=== PATIENT | female | born 1960 | race Hispanic/Latino ===

== ENCOUNTER → 2018-01-28 | Day surgery (SDC) | payer OTHER ==
[~2018-01-28] MED LIST: CARAFATE SU1 G/10 ML PO; CLONAZEPAM0.5 MG PO; DUEXIS 800-26.1 EACH PO; ESTROGEN PO; FENTANYL CITRATE/PF 100MCG/2 ML INJ ONE; L-METHYLFOLATE15 MG PO; LIDOCAINE HCL 2% LOCAL INJ 5 ML SDV VIAL INJ ONE; MELOXICAM7.5 MG PO; MIDAZOLAM HCL 2 MG/2 ML VIAL ONE; PROPOFOL IV EMULSION 10 MG/ML 20 ML VIAL ONE; PROTONIX40 M2 PO; VESICARE5 MG PO; XARELTO10 MG PO; XARELTO20 MG PO; Z LAMOTRIGINE PO; Z.0.ABILIFY10 MG PO; Z.0.CRESTOR20 MG PO; Z.0.SERTRALINE HCL10 PO; Z.0.TOVIAZ4 MG PO; [UNRECOGNIZED DRUG - OTHER] PO; [UNRECOGNIZED DRUG - OTHER] PO; [UNRECOGNIZED DRUG - OTHER] PO
--- NOTE | 2018-01-29 03:58 | Operative Report ---
DATE OF PROCEDURE: January 28, 2018 REFERRING PHYSICIAN: Dr. Chemo Ravi PROCEDURE PERFORMED: Esophagogastroduodenoscopy with esophageal dilatation biopsies and a colonoscopy with polypectomy. INDICATIONS FOR ESOPHAGOGASTRODUODENOSCOPY: Dysphagia and nausea. INDICATIONS FOR COLONOSCOPY: Colorectal cancer screening and personal history of colon polyps. MEDICATION: Patient was done under MAC. Please see anesthesiologist's note. PROCEDURE: With patient in the left lateral decubitus position, flexible fiberoptic Olympus gastroscope was introduced into the esophagus under direct visualization without any difficulty. There was a mild stricture noted at the GE junction and that was dilated to size 52-[place] Ni. There was some mild erythema also noted in the distal esophagus. The scope was then advanced with ease into the stomach. Mucosa overlying the antrum and the body revealed some patchy erythema and low-grade to moderate edema and biopsies were obtained and sent to stain for H. pylori. Pylorus appeared to be of normal contour and shape. It was intubated with ease and the scope was advanced all the way to the 2nd portion of the duodenum. The scope was then withdrawn slowly. Mucosa overlying the proximal 2nd portion and the duodenal bulb appeared to be within normal limits. The scope was then withdrawn back into the stomach and retroflexed and the mucosa overlying the fundus and the cardia appeared to be within normal limits. The scope was then straightened out. The stomach was decompressed. The scope subsequently withdrawn. Patient tolerated the procedure well. IMPRESSION 1. Distal esophagitis. 2. Esophageal stricture at gastroesophageal junction dilated to size 52-[place] Ni. 3. Gastritis biopsied. Biopsies sent to stain for Helicobacter pylori. PLAN: Follow up histology. Continue Protonix 40 mg 1 p.o. a.c. b.i.d. PROCEDURE FOR COLONOSCOPY: Patient was then turned around after adequate lubrication of the anal canal. A flexible fiberoptic Olympus colonoscope was inserted into the rectum with ease and advanced all the way to the cecum. It was then withdrawn slowly. Mucosa overlying the cecum, ascending colon, transverse colon appeared to be within normal limits. One polyp was hot biopsied from the descending colon. Two polyps were hot biopsied from the sigmoid and 1 polyp was hot biopsied from the rectum. The scope was then retroflexed into the distal rectum and small internal hemorrhoids were noted, none of which was actively bleeding. The scope was then straightened out. It was subsequently withdrawn. Patient tolerated the procedure well. IMPRESSION 1. Descending colon polyp, hot biopsied. 2. Sigmoid colon polyps, hot biopsied x2. 3. Rectal polyp, hot biopsied x1. 4. Internal hemorrhoids, none actively bleeding. PLAN: Follow up histology. Initiate high-fiber, low-fat diet. Initiate high-fiber supplement. Patient will need a followup colonoscopy in 3 years. Job#: [id number] GISSELLE cc:Dr. Chemo Ravi
== END | disposition home or self-care (01) ==
LOC: OR 12:55
PROVIDERS: ATTEND Internal Medicine Gastroenterology
DX: Z12.11 Encounter for screening for malignant neoplasm of colon (principal); K63.5 Polyp of colon; K62.1 Rectal polyp; K22.2 Esophageal obstruction; K29.70 Gastritis, unspecified, without bleeding; K20.8 Other esophagitis; K21.9 Gastro-esophageal reflux disease without esophagitis; K64.8 Other hemorrhoids; G47.33 Obstructive sleep apnea (adult) (pediatric); E78.5 Hyperlipidemia, unspecified; F32.9 Major depressive disorder, single episode, unspecified; Z68.28 Body mass index [BMI] 28.0-28.9, adult; Z86.711 Personal history of pulmonary embolism; Z80.0 Family history of malignant neoplasm of digestive organs
CPT/HCPCS: 43239; 43450; 45384; 93005; J2001; J2250

== ENCOUNTER 2018-07-02 12:08 | Emergency (ER) | payer OTHER ==
[~2018-07-02] VITALS: Ht 157.5 cm; Wt 65.8 kg
[~2018-07-02 12:08] MED LIST changes: -FENTANYL CITRATE/PF 100MCG/2 ML INJ ONE; -LIDOCAINE HCL 2% LOCAL INJ 5 ML SDV VIAL INJ ONE; -MIDAZOLAM HCL 2 MG/2 ML VIAL ONE; -PROPOFOL IV EMULSION 10 MG/ML 20 ML VIAL ONE
[2018-07-02] MEDS ORDERED: MUPIROCIN22 GM TOP (12:42)
== END 2018-07-02 12:59 | disposition home or self-care (01) ==
LOC: FSED 12:08
DX: L60.0 Ingrowing nail (principal); B35.1 Tinea unguium; K21.9 Gastro-esophageal reflux disease without esophagitis; F41.9 Anxiety disorder, unspecified; F32.9 Major depressive disorder, single episode, unspecified
CPT/HCPCS: 99283

== ENCOUNTER → 2018-10-11 | Day surgery (SDC) | payer OTHER ==
[2018-10-09 12:51] LABS: BASOPHILS # (AUTO) 0.1 (0.0-0.1); BASOPHILS % 0.5 % (0.0-1.0); EOSINOPHILS # (AUTO) 0.1 (0.0-0.4); EOSINOPHILS % 1.4 % (0.0-6.0); HEMATOCRIT 41.4 % (34.2-44.1); HEMOGLOBIN 13.7 g/dL (12.0-16.0); LYMPHOCYTES # (AUTO) 2.2 (1.0-3.2); LYMPHOCYTES % 22.3 % (18.0-39.1); MEAN CORPUSCULAR HEMOGLOBIN 28.8 pg (28-32); MEAN CORPUSCULAR HGB CONC 33.1 g/dL (31-35); MEAN CORPUSCULAR VOLUME 87.2 fL (81-99); MONOCYTES # (AUTO) 0.5 (0.2-0.8); MONOCYTES % 4.7 % (4.4-11.3); NEUTROPHILS # (AUTO) 6.9 (2.1-6.9); NEUTROPHILS % 70.8 % (38.7-80.0); PLATELET COUNT 267 x10e3/uL (140-360); RED BLOOD COUNT 4.75 x10e6/uL (3.6-5.1); RED CELL DISTRIBUTION WIDTH 13.1 % (11.7-14.4)
[2018-10-09 13:23] LABS: ANION GAP 12.8 mmol/L (8-16); BLOOD UREA NITROGEN 15 mg/dL (7-26); BUN/CREATININE RATIO 19 (6-25); CALCIUM 9.8 mg/dL (8.4-10.2); CARBON DIOXIDE 25 mmol/L (22-29); CHLORIDE 108 mmol/L (98-107); CREATININE, SERUM 0.78 mg/dL (0.57-1.11); EST GLOMERULAR FILTRATION RATE > 60 ML/MIN (60-); GLUCOSE 99 mg/dL (74-118); POTASSIUM 3.8 mmol/L (3.5-5.1); SODIUM 142 mmol/L (136-145)
--- NOTE | 2018-10-09 13:39 | Diagnostic Imaging Report ---
EXAMINATION: PA and lateral views of the chest. COMPARISON: None CLINICAL HISTORY: Preoperative study for foot surgery DISCUSSION: Lines/tubes: None. Lungs: The lungs are well inflated and clear. There is no evidence of pneumonia or pulmonary edema. Pleura: There is no pleural effusion or pneumothorax. Heart and mediastinum: The cardiomediastinal silhouette is normal. Bones and soft tissues: No acute bony abnormalities. IMPRESSION: No acute cardiopulmonary abnormalities. Signed by: Dr. Milton Isaacs M.D. on 10/09/2018 1:36 PM
[~2018-10-11] MED LIST changes: +ACETAMINOPHEN 1000 MG/100 ML IV ONE; +BETAMETHASONE DISODIUM PHOS 6 MG/ML VIAL ONE; +BUPIVACAINE HCL 0.5% INJ 30 ML VIAL INJ ONE; +CEFAZOLIN SOD 1 GM/NS 50ML 50 ML IV ONE; +DEXAMETHASONE SOD PHOS INJ 4 MG/ML VIAL ONE; +FENTANYL CITRATE/PF 100MCG/2 ML INJ ONE; +LIDOCAINE HCL 1% LOCAL INJ 20 ML VIAL ONE; +LIDOCAINE HCL 2% LOCAL INJ 5 ML SDV VIAL INJ ONE; +MEPERIDINE HCL INJ 25 MG/ML VIAL ONE; +METOCLOPRAMIDE HCL 10 MG/2ML VIAL ONE; +MIDAZOLAM HCL 2 MG/2 ML VIAL ONE; +MUPIROCIN 2% OINT 22 GM TUBE ONE; +MUPIROCIN22 GM TOP; +ONDANSETRON HCL INJ 2MG/ML 2ML 2 MG/ML VIAL ONE; +PROPOFOL IV EMULSION 10 MG/ML 20 ML VIAL ONE; +SEVOFLURANE INHAL SOLN 250 ML PEN BTL ONE
--- OUTSIDE RECORDS SUMMARY | 2018-10-11 05:38 | XMS REPORT | Summary of Care ---
Author Author JOO TAN M.D. Unknown Address Unknown Phone Unavailable Care Team Providers Care Stoker Installer Name Role Phone JOO TAN M.D. Unavailable Unavailable JOO TAN MD Unavailable Unavailable Unavailable Unavailable Functional Status Name Dates Details Functional status health issues are not documented Status: Name Dates Details Cognitive status health issues are not documented Status: Problems Name Dates Details Overactive bladder (596.51, N32.81) Status: Active Pulmonary embolism (415.19, I26.99) Status: Active Vegetarian diet (V49.89, Z78.9) Status: Active Chronic GERD (530.81, K21.9) Status: Active Well woman exam (no gynecological exam) (V70.0, Z00.00) Status: Active Vaginal pain (625.9, R10.2) Status: Active Hypercholesterolemia (272.0, E78.00) Status: Active Hyperglycemia (790.29, R73.9) Status: Active Pelvic pain in female (625.9, R10.2) Status: Active Breast lump (611.72, N63.0) Status: Active Breast cancer screening (V76.10, Z12.31) Status: Active Fibrocystic breast changes, bilateral (610.1, N60.11) Status: Active Depression, major, recurrent, 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 * Refills: 0 Active Sertraline HCl - 100 MG Oral Tablet TAKE 2 TABLETS BY MOUTH EVERY DAY * Quantity: 180 Refills: 0 JOO TAN M.D. * Start : 14-Oct-2017 Active LamoTRIgine 200 MG Oral Tablet TAKE 1 TABLET BY MOUTH EVERY DAY * Quantity: 90 Refills: 0 JOO TAN M.D. * Start : 05-Sep-2017 Active ARIPiprazole 20 MG Oral Tablet TAKE 1 TABLET BY MOUTH EVERY DAY * Quantity: 90 Refills: 0 JOO TAN M.D. * Start : 19-May-2017 Active Crestor 20 MG Oral Tablet TAKE 1 TABLET DAILY. * Refills: 0 Active VESIcare 5 MG Oral Tablet TAKE 1 TABLET BY MOUTH EVERYDAY * Refills: 0 Active Meloxicam TABS TAKE 1 TABLET DAILY. * Refills: 0 Active 30 Tablet Bottle Allergies and Adverse Reactions Name Dates Details No Known Drug Allergies (Allergy) Status: Active Past Medical History Name Dates Details Chronic GERD (530.81, K21.9) Status: Active Overactive bladder (596.51, N32.81) Status: Active Pulmonary embolism (415.19, I26.99) Status: Active History of depression (V11.8, Z86.59) Status: Resolved History of hyperlipidemia (V12.29, Z86.39) Status: Resolved History of psychosis (V11.8, Z86.59) Status: Resolved Procedures Procedure Dates Details History of Liposuction Completed History of Abdominoplasty Completed Immunization Name Dates Details Immunizations not documented Family History Name Dates Details Family history of schizophrenia (V17.0, Z81.8) Status: Active Name Dates Details Family history of schizophrenia (V17.0, Z81.8) Status: Active Name Dates Details Family history of malignant neoplasm of breast (V16.3, Z80.3) Status: Active Name Dates Details Family history of Uterine carcinoma (179, C55) Status: Active Name Dates Details Family history of essential hypertension (V17.49, Z82.49) Status: Active Name Dates Details Family history of essential hypertension (V17.49, Z82.49) Status: Active Social History Name Dates Details - Status: Name Dates Details Never smoker Vital Signs Date Test Result Details [id number] BP Systolic 102 mm[Hg] Status: Comments: Location: LUE; Position: Sitting BP Diastolic 71 mm[Hg] Status: Comments: Location: LUE; Position: Sitting Physical Findings 19 Status: Comments: PHQ-9 Adult Depression Screening Height 62 in Status: Weight 149.375 lb Status: Body Mass Index Calculated 27.32 kg/m2 Status: Body Surface Area Calculated 1.69 m2 Status: Temperature 97 f Status: Comments: Method: Oral Respiration Rate 16 /min Status: Comments: Quality: Normal Heart Rate 68 /min Status: Comments: Location: R Radial; O2 SAT 98 % Status: Comments: Source: RA [id number] Physical Findings 6 Status: Comments: PHQ-9 Adult Depression Screening Results Date Description Value Details Results not documented Plan of Care Name Dates Details Planned Observations Planned Goals not documented Planned Encounters Appointment; JOO TAN M.D. On: 11-Dec-2018 10:30 Interventions Provided Medication Changes* ARIPiprazole 20 MG Oral Tablet - Renew * LamoTRIgine 200 MG Oral Tablet - Renew * Sertraline HCl - 100 MG Oral Tablet - Renew Plan* Discussed diagnosis, differential diagnosis, co morbidities, bio psychosocial factors, predisposing, precipitating and maintaining symptoms - Depression with anxiety, hx of psychosis, and OCD traits. still under social/financial stressors/legal case. Recommend to see psychotherapy for worsening depression due to current social stress. * - Maximum the dose of current psych meds , see improvement on depression this time. denies side effect. Will continue current Abilify, Lamotrigine, sertraline. No EPS. No side effect. * Pt had hx of taper off Abilify, and depression/psychosis reoccurred, will continue current dose of medication this time. Cautiously lowering the dosage if tolerate. * - encourage healthy lifestyle. * - follow up fatigue/sleep apnea CPAP with sleep medicine. * - educate to go the ER or call 911 if suicidal or condition worse. * - MLP program assistance for legal service that pt needs. * - We will continue follow-up with psychotherapist * RTC 3m. Discussion/Summary* Progress made toward Goal moderate progress. * Additional notes and Recommendations. * Client will continue with counseling services. * Discussed the following with patient/family/other who verbally acknowledged and agrees to comply. Patient understands and will comply. Bio-psychosocial factors. Co-Morbidities. Differential diagnosis. Safety plan. Alternative medication(s). Current medication(s). Risks/benefits. Side effects. Target symptoms. Treatment plan. Diagnosis. follow-up 3mos Instructions Name Dates Details Instructions not documented Encounters Appointment; JOO TAN M.D. Encounter Diagnosis: Problem not documented On: 15-Nov-2016 8:00 Appointment; JOO TAN M.D. Encounter Diagnosis: Problem not documented On: 11-Jan-2017 11:30 Appointment; AL ARMANDO NP Encounter Diagnosis: Problem not documented On: 18-Jan-2017 11:30 Appointment; JOO TAN M.D. Encounter Diagnosis: Problem not documented On: 02-Feb-2017 11:30 Appointment; JOO TAN M.D. Encounter Diagnosis: Problem not documented On: 14-Sep-2017 9:00 Appointment; AL ARMANDO NP Encounter Diagnosis: Problem not documented On: 14-Oct-2017 9:00 Appointment; JOO TAN M.D. Encounter Diagnosis: Problem not documented On: 18-Oct-2017 8:30 Appointment; JOO TAN M.D. Encounter Diagnosis: Problem not documented On: 13-Mar-2018 9:00 Appointment; AL ARMANDO NP Encounter Diagnosis: Problem not documented On: 29-Mar-2018 14:30 Appointment; JOO TAN M.D. Encounter Diagnosis: Problem not documented On: 12-Jun-2018 9:00 Appointment; JOO TAN M.D. Encounter Diagnosis: Problem not documented On: 12-Jun-2018 10:30 Appointment; JOO TAN M.D. Encounter Diagnosis: Problem not documented On: 11-Sep-2018 10:30
--- OUTSIDE RECORDS SUMMARY | 2018-10-11 05:38 | XMS REPORT ---
Author Author [facility] Address Unknown Phone Unavailable Care Team Providers Care Expressive Music Therapist Name Role Phone RASHAD WHITE Unavailable Unavailable Payers Payer Name Policy Type Policy Number Effective Date Expiration Date Problems This patient has no known problems. Allergies, Adverse Reactions, Alerts Allergy Name Allergy Type Status Severity Reaction(s) Onset Date Inactive Date Treating Clinician Comments No Known Allergies DA Active U 2018-06-26 00:00:00 Medications This patient has no known medications. Results Test Description Test Time Test Comments Text Results Atomic Results Result Comments CHEST 2 VIEWS 2018-10-09 13:34:00 [place] [address] Patient Name: JOEL CHANG MR #: [id number] : 1960 Age/Sex: 58/F Req #: [id number] Adm Physician: Ordered by: RASHAD WHITE DPM Report #: [id number] Location: OR Room/Bed: Procedure: [id number] DX/CHEST 2 VIEWS Exam Date: 10/09/18 Exam Time: 1250 REPORT STATUS: Signed EXAMINATION: PA and lateral views of the chest. THOMAS RISON: None CLINICAL HISTORY: Preoperative study for foot surgery DISCUSSION: Lines/tubes: None. Lungs: The lungs are well inflated and clear. There is no evidence of pneumonia or pulmonary edema. Pleura: There is no pleural effusion or pneumothorax. Heart and mediastinum: The cardiomediastinal silhouette is normal. Bones and soft tissues: No acute bony abnormalities. IMPRESSION: No acute cardiopulmonary abnormalities. Signed by: Dr. Kendrick Gao M.D. on 10/09/2018 1:36 PM Dictated By: KENDRICK GAO MD [id number] Transcribed By: VERONIQUE on 10/09/18 1336 COPY TO: RASHAD WHITE DPM
--- OUTSIDE RECORDS SUMMARY | 2018-10-11 05:38 | XMS REPORT | Continuity of Care Document ---
Author Author [facility] Address Unknown Phone Unavailable Problems Problem Status Onset Date Classification Date Reported Comments Source Pulmonary embolism Active 10/09/2015 Problem 07/02/2018 [facility] Medications Medication Details Route Status Patient Instructions Ordering Provider Order Date Source Mupirocin 22 Gm Oint...g. Twice A Day Active apply twice daily to affected toenail to help prevent infection Velazco 07/02/2018 [facility] Meloxicam 7.5 Mg Tablet, 7.5 Mg Oral Daily Active 01/28/2018 [facility] Deplin-Algal Oil , 15 Mg Oral Daily Active 11/01/2016 [facility] Meloxicam 7.5 Mg Tablet, 7.5 Mg Oral Daily Active 10/11/2015 [facility] Estrogen , 0.625 Mg Oral Bedtime Active 10/10/2015 [facility] Progesterone,Micronized (Prometrium) 100 Mg Capsule, 100 Mg Oral Daily Active 10/10/2015 [facility] Rivaroxaban (Xarelto) 20 Mg Tablet, 20 Mg Oral Daily Active Anish 10/10/2015 [facility] Rivaroxaban (Xarelto) 10 Mg Tablet, 15 Mg Oral Twice A Day Active Anish 10/10/2015 [facility] Fesoterodine Fumarate (Toviaz) 4 Mg Tab.sr.24h, 4 Mg Oral Daily Active 01/31/2014 [facility] Methylfola , 15 Mg Oral Daily Active 01/31/2014 [facility] Aripiprazole (Abilify) 10 Mg Tablet Daily Active [facility] Ibuprofen/Famotidine (Duexis 800-26.6 Mg Tablet) 1 Each Tablet Three Times A Day Active [facility] Lamotrigine 100 Mg Tablet Daily Active [facility] Levomefolate Calcium (L-Methylfolate Calcium) 15 Mg Tablet Daily Active [facility] Pantoprazole Sodium (Protonix) 40 Mg Suspdr.pkt Twice A Day Active [facility] Rosuvastatin Calcium (Crestor) 20 Mg Tablet Daily Active [facility] Sertraline Hcl 100 Mg Tablet Twice A Day Active [facility] Solifenacin Succinate (Vesicare) 5 Mg Tablet Daily Active [facility] Sucralfate (Carafate Susp 1GM/10ML) 1 G/10 Ml Susp Twice A Day [facility] Allergies, Adverse Reactions, Alerts Substance Category Reaction Severity Reaction type Status Date Reported Comments Source Immunizations Immunization Date Given Site Status Last Updated Comments Source Results Order Name Results Value Reference Range Date Interpretation Comments Source Vital Signs Vital Sign Value Date Comments Source Encounters Location Location Details Encounter Type Encounter Number Reason For Visit Attending Provider ADM Date DC Date Status Source Registered Surgical Day Care [id number] DAYNE ARAGON MD 01/28/2018 [facility] Departed Emergency Room [id number] WANDA VELAZCO MD 07/02/2018 07/02/2018 [facility] Procedures Procedure Code Date Perfomer Comments Source EGD BIOPSY SINGLE/MULTIPLE [id number] 01/28/2018 [place] [facility] DILATE ESOPHAGUS 1/MULT PASS [id number] 01/28/2018 [place] [facility] COLONOSCOPY W/LESION REMOVAL [id number] 01/28/2018 [facility]
[2018-10-11 10:20] VITALS: BP 125/74
--- NOTE | 2018-10-11 10:25 | Diagnostic Imaging Report ---
EXAM: FOOT RIGHT AP LAT DATE: 10/11/2018 9:04 AM INDICATION: Postoperative COMPARISON: None FINDINGS: 2 views of the right foot are obtained through an opaque splint which obscures bony detail. There is an osteotomy at the distal first metatarsal traversed by a screw and K wire. The second, third and fourth toes are traversed by K wires from the distal phalanges to proximal metatarsals. IMPRESSION: Postoperative changes of the first metatarsal and second, third and fourth toes as described. Signed by: Dr. Juan Alberto English M.D. on 10/11/2018 10:22 AM
--- NOTE | 2018-10-11 13:20 | Operative Report ---
DATE OF PROCEDURE: 10/11/2018 SURGEON: Garland Contreras DPM PREOPERATIVE DIAGNOSES: 1. Painful hallux valgus deformity, right foot. 2. Painful contracted hammertoe digit 2nd, right foot. 3. Painful contracted hammertoe digit 3rd, right foot. 4. Painful contracted hammertoe digit 4th, right foot. 5. Painful contracted hammertoe digit 5th, right foot. POSTOPERATIVE DIAGNOSES: 1. Painful hallux valgus deformity, right foot. 2. Painful contracted hammertoe digit 2nd, right foot. 3. Painful contracted hammertoe digit 3rd, right foot. 4. Painful contracted hammertoe digit 4th, right foot. 5. Painful contracted hammertoe digit 5th, right foot. OPERATIVE PROCEDURE: 1. Jeronimo bunionectomy with screw fixation, right foot. 2. Arthroplasty of 2nd digit with K-wire fixation. 3. Arthroplasty of 3rd digit with K-wire fixation. 4. Arthroplasty of 4th digit with K-wire fixation. 5. Arthroplasty of 5th digit. 6. Intraoperative use of fluoroscopy. 7. Trigger point shot of cortisone. 8. Application of posterior splint. ANESTHESIA: General. HEMOSTASIS: Pneumatic thigh tourniquet at 350 mmHg. PROCEDURE IN DETAIL: The patient was taken into the operating room and placed on the operating table in supine position. Following induction of general anesthesia by the anesthesiologist, Webril wraps were placed on the patient's right thigh followed by the patient's right thigh tourniquet. The right lower extremity was then prepped and draped in the usual aseptic manner and the following procedure was then performed. Procedure #1: Jeronimo bunionectomy with screw fixation, right foot. Attention was directed to the dorsal medial aspect of the first metatarsophalangeal joint, where a 6 cm linear incision was performed. Incision was deepened via sharp and blunt dissection being careful to retract vital structures and ligate superficial vessels as necessary. Once the level of the capsule was reached, a longitudinal capsulotomy was then performed to expose the dorsal medial exostosis of the first metatarsal head. Then using an oscillating saw, dorsal medial exostosis was excised from the operation site in toto. A V-osteotomy was then performed from medial to lateral. Capital fragment was then transpositioned laterally. Upon adequate surgical and anatomical reduction utilizing proper AO technique, a 2.0 14-mm cortical screw in conjunction with a bur, a 0.045 K-wire was used to achieve stability at the osteotomy site. A redundant bone medially was excised via the use of oscillating saw and rotating bur. Procedure #2 to #5: Arthroplasty of 2nd through 5th with K-wire fixation of 2nd through 4th. Attention was then directed to the dorsal aspect of the above-mentioned toes overlying the proximal interphalangeal joint, where a 3 cm linear incision was performed. Incision was deepened down to the joint capsule. Transverse capsulotomy was then performed exposing the head of the proximal phalanx. Using oscillating saw, the head of the proximal phalanx was excised from the operation site in toto. Second through 4th toes were still noted to be contracted, so a 0.045 K-wire was introduced across the metatarsophalangeal joint to achieve proper anatomical reduction. Procedure #6: Intraoperative use of fluoroscopy was then used to make sure proper alignment and fixation was achieved. Closure was then obtained by 3-0 Vicryl, 4-0 Vicryl, 4-0 nylon for capsule, subcutaneous tissue, and skin respectively after properly and copiously flushing the areas with saline. Procedure #7: A trigger point shot of cortisone was then given to the 1st and 4th interspace of the right foot, then approximately 15 mL of 0.5% plain Marcaine plus 5 to 10 mL of 1% Xylocaine plain were used to achieve local anesthesia of above-mentioned surgical area. Sterile dressing was applied. Upon release of the thigh tourniquet, blood hyperemia was noted immediate to all digits of the patient's right foot. Procedure #8: Application of posterior splint. A properly placed posterior splint was then applied keeping the foot at 90 degrees with respect to the leg to try and prevent any postop complications. The patient was then transferred from the OR to recovery room with vital signs stable and neurovascular status intact. No intraoperative complications were encountered. Blood loss during the surgery was minimal. The patient to remain nonweightbearing with aid of crutches, keep her foot elevated, and is to apply an ice pack to the ankle joint area. MARIA D Branch/MATILDA /[id number]
== END | disposition home or self-care (01) ==
LOC: OR 05:35
PROVIDERS: ATTEND Podiatrist Foot Surgery
DX: M20.11 Hallux valgus (acquired), right foot (principal); M20.41 Other hammer toe(s) (acquired), right foot; M06.9 Rheumatoid arthritis, unspecified; M19.90 Unspecified osteoarthritis, unspecified site; G47.33 Obstructive sleep apnea (adult) (pediatric); R00.1 Bradycardia, unspecified; K21.9 Gastro-esophageal reflux disease without esophagitis; F32.9 Major depressive disorder, single episode, unspecified; Z01.810 Encounter for preprocedural cardiovascular examination; Z01.812 Encounter for preprocedural laboratory examination; Z01.818 Encounter for other preprocedural examination
CPT/HCPCS: 28285 ×4; 28296; 36415; 71046; 73620; 80048; 85025; 93005; C1713 ×2; J0131; J0690; J0720; J1100; J2001 ×2; J2175; J2250; J2405; J2704; J2765

== ENCOUNTER → 2019-03-12 | Day surgery (SDC) | payer OTHER ==
[~2019-03-12] MED LIST changes: -ACETAMINOPHEN 1000 MG/100 ML IV ONE; -BETAMETHASONE DISODIUM PHOS 6 MG/ML VIAL ONE; -BUPIVACAINE HCL 0.5% INJ 30 ML VIAL INJ ONE; -CEFAZOLIN SOD 1 GM/NS 50ML 50 ML IV ONE; -DEXAMETHASONE SOD PHOS INJ 4 MG/ML VIAL ONE; -LIDOCAINE HCL 1% LOCAL INJ 20 ML VIAL ONE; -LIDOCAINE HCL 2% LOCAL INJ 5 ML SDV VIAL INJ ONE; -MEPERIDINE HCL INJ 25 MG/ML VIAL ONE; -METOCLOPRAMIDE HCL 10 MG/2ML VIAL ONE; -MUPIROCIN 2% OINT 22 GM TUBE ONE; -ONDANSETRON HCL INJ 2MG/ML 2ML 2 MG/ML VIAL ONE; -PROPOFOL IV EMULSION 10 MG/ML 20 ML VIAL ONE; +PROPOFOL IV EMULSION 10 MG/ML 50 ML VIAL ONE; -SEVOFLURANE INHAL SOLN 250 ML PEN BTL ONE
--- OUTSIDE RECORDS SUMMARY | 2019-03-12 06:28 | XMS REPORT | Summary of Care ---
Author Author Dawn Demarco Unknown Address Unknown Phone Unavailable Care Team Providers Care Lead Sales Consultant Name Role Phone JOO TAN M.D. Unavailable [...] TAKE 1 TABLET BY MOUTH TWICE DAILY R.N. Active Protonix 40 MG Oral Tablet Delayed Release TAKE 1 TABLET TWICE DAILY 30 MINUTES BEFORE BREAKFAST AND DINNER. * Refills: 0 R.N. Active Sertraline HCl - 100 MG Oral Tablet TAKE 2 TABLETS BY MOUTH EVERY DAY * Quantity: 180 Refills: 1 JOO TAN M.D. * Start : 14-Oct-2017 Active lamoTRIgine 200 MG Oral Tablet TAKE 1 TABLET BY MOUTH EVERY DAY * Quantity: 90 Refills: 1 JOO TAN M.D. * Start : 05-Sep-2017 Active ARIPiprazole 20 MG Oral Tablet TAKE 1 TABLET BY MOUTH EVERY DAY * Quantity: 90 Refills: 1 JOO TAN M.D. * Start : 19-May-2017 Active Crestor 20 MG Oral Tablet TAKE 1 TABLET DAILY. * Refills: 0 R.N. Active VESIcare 5 MG Oral Tablet TAKE 1 TABLET BY MOUTH EVERYDAY * Refills: 0 R.N. Active Meloxicam TABS TAKE 1 TABLET DAILY. * Refills: 0 R.N. Active 30 Tablet Bottle Allergies and Adverse [...] smoker Vital Signs Date Test Result Details [id number] BP Systolic 130 mm[Hg] Status: Comments: Location: LUE; Position: Sitting BP Diastolic 84 mm[Hg] Status: Comments: Location: LUE; Position: Sitting Height 62 in Status: Weight 154 lb Status: Body Mass Index Calculated 28.17 kg/m2 Status: Body Surface Area Calculated 1.71 m2 Status: Temperature 97.7 f Status: Comments: Method: Oral Heart Rate 55 /min Status: Comments: Location: L Radial; Quality: Normal Respiration Rate 16 /min Status: Comments: Quality: Normal O2 SAT 98 % Status: Comments: Source: RA Physical Findings 0 Status: Comments: Alcohol Screen - How many times in the past yr have you had 5 (for M) or 4 (for F) or 4 (for all > 65yrs) or more drinks in a day? Physical Findings 17 Status: Comments: PHQ-9 Adult Depression Screening Results Date Description Value Details Results not documented Plan of Care Name Dates Details Planned Observations Planned Goals not documented Planned Encounters Appointment; JOO TAN M.D. On: 23-Apr-2019 10:30 Instructions Name Dates Details Instructions not documented [...] Diagnosis: Problem not documented On: 11-Sep-2018 10:30 Appointment; JOO TAN M.D. Encounter Diagnosis: Problem not documented On: 22-Jan-2019 10:30
--- OUTSIDE RECORDS SUMMARY | 2019-03-12 06:28 | XMS REPORT | Continuity of Care Document ---
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 Information Exchange Unavailable Unavailable Problems Problem Status Onset Date Classification Date Reported Comments Source Pulmonary embolism Active 10/09/2015 Problem 07/02/2018 [facility] Medications Medication Details Route Status Patient Instructions Ordering Provider Order Date Source Mupirocin 22 Gm Oint...g. Twice A Day Active apply twice daily to affected toenail to help prevent infection Dobson 07/02/2018 [facility] Meloxicam 7.5 Mg Tablet, 7.5 Mg Oral Daily Active 01/28/2018 [facility] Deplin-Algal Oil , 15 Mg Oral Daily Active 11/01/2016 [facility] Meloxicam 7.5 Mg Tablet, 7.5 Mg Oral Daily Active 10/11/2015 [facility] Estrogen , 0.625 Mg Oral Bedtime Active 10/10/2015 [facility] Progesterone,Micronized (Prometrium) 100 Mg Capsule, 100 Mg Oral Daily Active 10/10/2015 [facility] Rivaroxaban (Xarelto) 20 Mg Tablet, 20 Mg Oral Daily Active Anish 10/10/2015 [facility] Rivaroxaban (Xarelto) 10 Mg Tablet, 15 Mg Oral Twice A Day Active Anish 10/10/2015 [facility] Fesoterodine Fumarate (Toviaz) 4 Mg Tab.sr.24h, 4 Mg Oral Daily Active 01/31/2014 [facility] Methylfola , 15 Mg Oral Daily Active 01/31/2014 [facility] Aripiprazole (Abilify) 10 Mg Tablet Daily Active [facility] Ibuprofen/Famotidine (Duexis 800-26.6 Mg Tablet) 1 Each Tablet Three Times A Day Active [facility] Lamotrigine 100 Mg Tablet Daily [facility] Levomefolate Calcium (L-Methylfolate Calcium) 15 Mg Tablet Daily [facility] Pantoprazole Sodium (Protonix) 40 Mg Suspdr.pkt Twice A Day [facility] Rosuvastatin Calcium (Crestor) 20 Mg Tablet Daily Active [facility] Sertraline Hcl 100 Mg Tablet Twice A Day Active [facility] Solifenacin Succinate (Vesicare) 5 Mg Tablet Daily [facility] Sucralfate (Carafate Susp 1GM/10ML) 1 G/10 Ml Susp Twice A Day [facility] Allergies, Adverse Reactions, Alerts No Known Medication Allergies Immunizations No Data Provided for This Section Results No Data Provided for This Section Pathology Reports No Data Provided for This Section Diagnostic Reports No Data Provided for This Section Consultation Notes No Data Provided for This Section Discharge Summaries No Data Provided for This Section History and Physicals No Data Provided for This Section Vital Signs No Data Provided for This Section Encounters Location Location Details Encounter Type Encounter Number Reason For Visit Attending Provider ADM Date DC Date Status Source Registered Surgical Day Care [id number] DAYNE ARAGON MD 01/28/2018 [facility] Departed Emergency Room [id number] WANDA DOBSON MD 07/02/2018 07/02/2018 [facility] Procedures Procedure Code Date Perfomer Comments Source EGD BIOPSY SINGLE/MULTIPLE 29140 01/28/2018 [facility] [place] DILATE ESOPHAGUS 1/MULT PASS 20044 01/28/2018 [facility] COLONOSCOPY W/LESION REMOVAL [id number] 01/28/2018 [facility] Assessment and Plan No Data Provided for This Section Plan of Care Plan of Care Date Source Discharge Date 07/02/18 12:59pm Disposition HOME, SELF-CARE Condition at Discharge Stable Instructions/Education Provided Wound Care (General) Forms Provided Work/School Excuse Prescriptions See Medication Section Referrals NAYELY WHITE DPM Order Date: Call for an appointment Address: [address] [facility] [address] [place], [place] [id number] Additional Instructions/Education Please be sure to call Dr. White, the lan manager, to schedule an appt for your toenails. Apply the topical antibiotic prescribed in the interim to help prevent infection. Thank you! 07/02/2018 [facility] Social History Social History Date Source Social History Problem Response Recorded Date/Time Onset Date Status Hx Psychiatric Problems No 10/09/2015 11:46pm Not Applicable Not Applicable Hx Eating Disorder No 10/09/2015 11:46pm Not Applicable Not Applicable Hx Substance Use Disorder No 10/09/2015 11:46pm Not Applicable Not Applicable Hx Depression No 10/09/2015 11:46pm Not Applicable Not Applicable Hx Alcohol Use No 10/09/2015 11:46pm Not Applicable Not Applicable Hx Substance Use Treatment No 10/09/2015 11:46pm Not Applicable Not Applicable Hx Physical Abuse No 10/09/2015 11:46pm Not Applicable Not Applicable 07/02/2018 [facility] Family History No Data Provided for This Section Advance Directives Order Name Results Value Date Source Advance Directives Advance Directives Directive Response Recorded Date/Time Does the patient have an advance directive? No 10/09/15 11:46pm If yes, is advance directive on file with [facility]? No 10/09/15 11:46pm If not on file with [facility] will patient provide a copy? No 10/04/15 9:30pm 07/02/2018 [facility] Functional Status No Data Provided for This Section
[2019-03-12 10:15] VITALS: BP 127/81
--- NOTE | 2019-03-12 16:03 | Operative Report ---
DATE OF PROCEDURE: 03/12/2019 SURGEON: Herson Beach MD PROCEDURES: EGD with biopsies and esophageal dilatation. INDICATIONS FOR PROCEDURE: Dysphagia to solids. MEDICATIONS: The patient was done under MAC, please see anesthesiologist's note. PROCEDURE IN DETAIL: With the patient in left lateral decubitus position, the flexible fiberoptic Olympus gastroscope was introduced into the esophagus under direct visualization without any difficulty. There was some patchy erythema noted in distal esophagus. The esophagus was then dilated to size 52-Polish Ni. The scope was then advanced with ease into the stomach. Mucosa overlying the antrum grossly appeared to be within normal limits. The mucosa overlying the body revealed some patchy areas of erythema and low-grade to moderate edema and biopsies were obtained and sent to stain for H. pylori. The pylorus was of normal contour and shape, it was intubated with ease and the scope was advanced all the way to the second portion of the duodenum. Biopsies were obtained from the second portion and duodenal bulb to rule out sprue. The scope was then withdrawn back into the stomach and retroflexed and mucosa overlying the fundus and the cardia appeared to be within normal limits. The scope was then straightened out, it was subsequently withdrawn, and the patient tolerated the procedure well. IMPRESSION: 1. Distal esophagitis, mild. 2. Esophagus dilated to size 52-Polish Ni. 3. Gastritis, body, biopsies obtained and sent to stain for Helicobacter pylori. 4. Rule out sprue. PLAN: Follow up histology. Continue Protonix 40 mg one p.o. before meals b.i.d. Herson Beach [place] [facility] [place] [place] /[id number] cc: Chemo Ravi MD
== END | disposition home or self-care (01) ==
LOC: OR 06:20
PROVIDERS: ATTEND Internal Medicine Gastroenterology
DX: K20.9 Esophagitis, unspecified (principal); R13.10 Dysphagia, unspecified; K29.70 Gastritis, unspecified, without bleeding; Z01.810 Encounter for preprocedural cardiovascular examination; K21.0 Gastro-esophageal reflux disease with esophagitis; E03.9 Hypothyroidism, unspecified; G47.33 Obstructive sleep apnea (adult) (pediatric); E78.00 Pure hypercholesterolemia, unspecified; F32.9 Major depressive disorder, single episode, unspecified
CPT/HCPCS: 43239; 43450; 93005; J2250; J2704; J3010

== ENCOUNTER → 2019-04-17 | Outpatient (CLI) | payer OTHER ==
[~2019-04-17] MED LIST changes: +ALBUTEROL SULF 0.083% NEB SOLN 3 ML NEB ONE; -FENTANYL CITRATE/PF 100MCG/2 ML INJ ONE; -MIDAZOLAM HCL 2 MG/2 ML VIAL ONE; -PROPOFOL IV EMULSION 10 MG/ML 50 ML VIAL ONE
--- NOTE | 2019-04-22 02:11 | Pulmonary Function Test ---
DATE OF STUDY: 04/17/2019 REFERRING PHYSICIAN: SPIROMETRY: Spirometry was normal. FEV1 was 3.21 L or 140% predicted and FVC was 3.73 L or 129% predicted in the setting of normal FEV1/FVC ratio. After bronchodilator administration, there was statistically significant change in spirometry. Flow volume loop was unremarkable. DIFFUSION CAPACITY: Diffusion capacity was high at 34.23 mL/mmHg/minute or 167% predicted. SUMMARY: Normal spirometry, increased diffusion capacity. This is most often seen in state of hyperemia, which is alveolar hemorrhage, asthma, early heart failure, sarcoidosis, and other conditions. Clinical correlation is recommended. MD KATIE Smith/[facility] /[id number]
== END ==
LOC: RESP 11:20
PROVIDERS: ATTEND Internal Medicine Critical Care Medicine
DX: J18.9 Pneumonia, unspecified organism (principal); I26.99 Other pulmonary embolism without acute cor pulmonale; J30.9 Allergic rhinitis, unspecified; R06.83 Snoring; G47.10 Hypersomnia, unspecified; G47.33 Obstructive sleep apnea (adult) (pediatric); J34.3 Hypertrophy of nasal turbinates; K21.9 Gastro-esophageal reflux disease without esophagitis; F32.9 Major depressive disorder, single episode, unspecified
CPT/HCPCS: 94060; 94640; 94727; 94729

== ENCOUNTER → 2020-05-20 | Outpatient (CLI) | payer OTHER ==
[~2020-05-20] MED LIST changes: -ALBUTEROL SULF 0.083% NEB SOLN 3 ML NEB ONE; +IOPAMIDOL 370 MG/ML 200 ML INFUS..BTL INJ ONE; +SODIUM CHLORIDE 0.9% 50ML 50 ML ONE
[2020-05-20 08:39] LABS: BLOOD UREA NITROGEN 14 mg/dL (7-26); BUN/CREATININE RATIO 17 (6-25); CREATININE, SERUM 0.81 mg/dL (0.57-1.11); EST GLOMERULAR FILTRATION RATE > 60 ML/MIN (60-)
== END ==
LOC: CT 08:06
PROVIDERS: ATTEND Internal Medicine Critical Care Medicine
DX: J18.9 Pneumonia, unspecified organism (principal); I26.99 Other pulmonary embolism without acute cor pulmonale; J30.9 Allergic rhinitis, unspecified; K21.9 Gastro-esophageal reflux disease without esophagitis; G47.33 Obstructive sleep apnea (adult) (pediatric); J34.3 Hypertrophy of nasal turbinates; G47.10 Hypersomnia, unspecified; R06.83 Snoring; F32.9 Major depressive disorder, single episode, unspecified
CPT/HCPCS: 36415; 71260; 82565; 84520; Q9967

== ENCOUNTER → 2021-01-21 | Day surgery (SDC) | payer OTHER ==
[~2021-01-21] MED LIST changes: +FENTANYL CITRATE/PF 100MCG/2 ML INJ ONE; +GLUCAGON FOR INJ 1 MG VIAL ONE; +HYDROCODON-ACE1 EA11 PO; +HYOSCYAMINE SULFATE 0.5 MG/ML INJ ONE; -IOPAMIDOL 370 MG/ML 200 ML INFUS..BTL INJ ONE; +LIDOCAINE HCL 2% LOCAL INJ 5 ML SDV VIAL INJ ONE; +MIDAZOLAM HCL 2 MG/2 ML VIAL ONE; +ONDANSETRON HCL INJ 2MG/ML 2ML 2 MG/ML VIAL ONE; +PROPOFOL IV EMULSION 10 MG/ML 20 ML VIAL ONE; -SODIUM CHLORIDE 0.9% 50ML 50 ML ONE
[2021-01-21 13:15] VITALS: BP 126/78
== END | disposition home or self-care (01) ==
LOC: OR 08:57
PROVIDERS: ATTEND Internal Medicine Gastroenterology
DX: K22.2 Esophageal obstruction (principal); K63.5 Polyp of colon; K29.50 Unspecified chronic gastritis without bleeding; K21.9 Gastro-esophageal reflux disease without esophagitis; K59.09 Other constipation; K64.8 Other hemorrhoids; N28.1 Cyst of kidney, acquired; K11.7 Disturbances of salivary secretion; E78.00 Pure hypercholesterolemia, unspecified; F32.9 Major depressive disorder, single episode, unspecified; Z01.810 Encounter for preprocedural cardiovascular examination; Z68.29 Body mass index [BMI] 29.0-29.9, adult; Z86.718 Personal history of other venous thrombosis and embolism; Z86.711 Personal history of pulmonary embolism; Z80.0 Family history of malignant neoplasm of digestive organs
CPT/HCPCS: 43239; 43450; 45380; 45385; 93005; J1610; J1980; J2001; J2250; J2405; J2704; J3010; 45378

== ENCOUNTER → 2021-03-11 | Outpatient (CLI) | payer OTHER ==
[~2021-03-11] MED LIST changes: -FENTANYL CITRATE/PF 100MCG/2 ML INJ ONE; -GLUCAGON FOR INJ 1 MG VIAL ONE; -HYOSCYAMINE SULFATE 0.5 MG/ML INJ ONE; -LIDOCAINE HCL 2% LOCAL INJ 5 ML SDV VIAL INJ ONE; -MIDAZOLAM HCL 2 MG/2 ML VIAL ONE; -ONDANSETRON HCL INJ 2MG/ML 2ML 2 MG/ML VIAL ONE; -PROPOFOL IV EMULSION 10 MG/ML 20 ML VIAL ONE
== END ==
LOC: DX 11:59
PROVIDERS: ATTEND Internal Medicine Gastroenterology
DX: R13.19 Other dysphagia (principal); Z20.822 Contact with and (suspected) exposure to COVID-19
CPT/HCPCS: 74230; 92526; 92611; U0002